=== PATIENT | female | born 1995 | race Two or more races ===

== ENCOUNTER 2016-12-22 08:29 | Emergency (ER) | payer MEDICAID ==
[~2016-12-22] VITALS: Ht 149.9 cm; Wt 39.0 kg
[2016-12-22] MEDS ORDERED: OYSTER SHELL C500 MG PO (08:56)
[2016-12-22] MEDS ORDERED: FOLIC ACID1 MG ORAL (08:56)
[2016-12-22] MEDS ORDERED: PRENATAL VITAM1 EACH PO (08:56)
[2016-12-22] MEDS ORDERED: NITROFURANTOIN100 M2 ORAL (08:56)
--- NOTE | 2016-12-22 09:50 | Emergency Room Report ---
History of Present Illness General Chief Complaint: Complications Source: Patient Present Illness HPI 21-year-old female presents ED for evaluation. Patient states she's approximately 4 months . Notice cramping pain in her abdomen starting this morning. 10 out of 10, cramping, localized right side, nonradiating. Denies vaginal bleeding or discharge. Denies fevers or chills. Denies nausea or vomiting. No aggravating factors. Denies any other associated symptoms Allergies: Coded Allergies: No Known Allergies (Unverified , 12/22/16) Patient History Past Medical History: none Past Surgical History: none Pertinent Family History: none Social History: Denies: alcohol use, drug use, smoking Last Menstrual Period: 4 months Now: No : 1 Immunizations: UTD Reviewed Nursing Documentation: PMH: Agreed, PSxH: Agreed Nursing Documentation-PMH Past Medical History: No History, Except For Review of Systems All Other Systems: negative except mentioned in HPI Physical Exam Vital Signs Date Time Temp Pulse Resp B/P Pulse Ox O2 Delivery O2 Flow Rate FiO2 12/22/16 08:42 97.7 83 18 95/60 99 Room Air Sp02 EP Interpretation: reviewed, normal General Appearance: alert, GCS 15, non-toxic, mild distress Head: normocephalic Eyes: bilateral eye PERRL, bilateral eye normal inspection ENT: normal ENT inspection Neck: normal inspection Respiratory: chest non-tender, lungs clear, normal breath sounds, speaking full sentences Cardiovascular #1: regular rate, rhythm, no edema Gastrointestinal: normal bowel sounds, soft, non-distended, no guarding, no rebound, tenderness Rectal: deferred Genitourinary: no CVA tenderness Musculoskeletal: normal inspection Neurologic: alert, oriented x3, responsive, motor strength/tone normal, sensory intact, speech normal Psychiatric: normal inspection Skin: normal inspection Lymphatic: normal inspection Medical Decision Making Diagnostic Impression: Primary Impression: Threatened ER Course Hospital Course 21-year-old female presents to ED complaining of lower abdominal pain. 4 months Differential diagnoses include: gastrits, gastroenterits, ectopic , ovarian torsion/cyst, UTI Clinical course Patient placed on stretcher in ED. After initial history and physical I ordered labs, IV fluids and OB ultrasound. Labs-no leukocytosis, electrolytes okay, beta hCG greater than 30,000, UA unremarkable Pelvic ultrasound-IUP detected with heart rate reassurance given the patient. Recommend followup with [facility] Diagnosis - threatened Stable and discharged to home with Rx tylenol. Followup with PMD/[facility]. Return to ED if symptoms recur or worsen Labs Test 12/22/16 08:59 12/22/16 09:21 Urine Color Yellow Urine Appearance Slightly cloudy Urine pH 5 (4.5-8.0) Urine Specific [place] 1.025 (1.005-1.035) Urine Protein 1+ (NEGATIVE) Urine Glucose (UA) Negative (NEGATIVE) Urine Ketones Negative (NEGATIVE) Urine Occult Blood Negative (NEGATIVE) Urine Nitrite Negative (NEGATIVE) Urine Bilirubin Negative (NEGATIVE) Urine Urobilinogen Normal MG/DL (0.0-1.0) Urine Leukocyte Esterase 2+ (NEGATIVE) Urine RBC 0-2 /HPF (0 - 2) Urine WBC 2-4 /HPF (0 - 2) Urine Squamous Epithelial Cells Occasional /LPF Urine Bacteria None /HPF (NONE) Urine HCG, Qualitative Positive White Blood Count 9.6 K/UL (4.8-10.8) Red Blood Count 3.87 M/UL (4.20-5.40) Hemoglobin 11.7 G/DL (12.0-16.0) Hematocrit 34.9 % (37.0-47.0) Mean Corpuscular Volume 90 FL (80-99) Mean Corpuscular Hemoglobin 30.3 PG (27.0-31.0) Mean Corpuscular Hemoglobin Concent 33.6 G/DL (32.0-36.0) Red Cell Distribution Width 12.9 % (11.6-14.8) Platelet Count 230 K/UL (150-450) Mean Platelet Volume 6.6 FL (6.5-10.1) Neutrophils (%) (Auto) 69.2 % (45.0-75.0) Lymphocytes (%) (Auto) 23.0 % (20.0-45.0) Monocytes (%) (Auto) 5.8 % (1.0-10.0) Eosinophils (%) (Auto) 1.2 % (0.0-3.0) Basophils (%) (Auto) 0.8 % (0.0-2.0) Sodium Level 136 mEQ/L (135-145) Potassium Level 3.8 mEQ/L (3.4-4.9) Chloride Level 104 mEQ/L (98-107) Carbon Dioxide Level 21 mEQ/L (20-30) Anion Gap 11 (5-15) Blood Urea Nitrogen 8 mg/dL (7-23) Creatinine 0.5 mg/dL (0.5-0.9) Estimat Glomerular Filtration Rate > 60 mL/min (>60) Glucose Level 82 mg/dL (74-106) Calcium Level 8.8 mg/dL (8.6-10.2) Total Bilirubin < 0.2 mg/dL (0.0-1.2) Aspartate Amino Transf (AST/SGOT) 18 U/L (5-40) Alanine Aminotransferase (ALT/SGPT) 18 U/L (3-33) Alkaline Phosphatase 51 U/L (35-104) Total Protein 6.6 g/dL (6.6-8.7) Albumin 3.6 g/dL (3.5-5.2) Globulin 3.0 g/dL Albumin/Globulin Ratio 1.2 (1.0-2.7) Lipase 51 U/L (< 60) Human Chorionic Gonadotropin, Quant 65880 mIU/mL CT/MRI/US Diagnostic Results CT/MRI/US Diagnostic Results : Imaging Test Ordered: OB US Impression 16 week 6day intrauterine . with FHR Last Vital Signs Date Time Temp Pulse Resp B/P Pulse Ox O2 Delivery O2 Flow Rate FiO2 12/22/16 08:42 97.7 83 18 95/60 99 Room Air Status: improved Disposition: HOME, SELF-CARE Condition: Stable Scripts Acetaminophen* (TYLENOL EXTRA STRENGTH*) 500 Mg Tablet 500 MG ORAL Q8H Y for Prn Headache/Temp > 101, #30 TAB 0 Refills Prov: KENNETH ALVARADO M.D. 12/22/16 Referrals: NON PHYSICIAN (PCP) KENNETH ALVARADO M.D. Dec 22, 2016 09:50
[2016-12-22 09:53] LABS: ALANINE AMINOTRANSFERASE 18 U/L (3-33); ALBUMIN/GLOBULIN RATIO 1.2 (1.0-2.7); ANION GAP 11 (5-15); ASPARTATE AMINO TRANSFERASE 18 U/L (5-40); CALCIUM 8.8 mg/dL (8.6-10.2); CARBON DIOXIDE 21 mEQ/L (20-30); CHLORIDE 104 mEQ/L (98-107); CREATININE 0.5 mg/dL (0.5-0.9); GLOMERULAR FILTRATION RATE > 60 mL/min (>60); HEMOLYSIS 6; LIPASE 51 U/L (< 60); POTASSIUM 3.8 mEQ/L (3.4-4.9); SODIUM 136 mEQ/L (135-145); TOTAL PROTEIN 6.6 g/dL (6.6-8.7)
[2016-12-22 09:58] LABS: BASOPHILS % (AUTO) 0.8 % (0.0-2.0); EOSINOPHILS % (AUTO) 1.2 % (0.0-3.0); MEAN CORPUSCULAR HEMOGLOBIN 30.3 PG (27.0-31.0); MEAN CORPUSCULAR HGB CONC 33.6 G/DL (32.0-36.0); MEAN CORPUSCULAR VOLUME 90 FL (80-99); MEAN PLATELET VOLUME 6.6 FL (6.5-10.1); MONOCYTES % (AUTO) 5.8 % (1.0-10.0); NEUTROPHILS % (AUTO) 69.2 % (45.0-75.0); PLATELET COUNT 230 K/UL (150-450); RED BLOOD COUNT 3.87 M/UL (4.20-5.40); RED CELL DISTRIBUTION WIDTH 12.9 % (11.6-14.8); WHITE BLOOD COUNT 9.6 K/UL (4.8-10.8)
[2016-12-22 09:59] LABS: APPEARANCE,URINE SLIGHTLY CLOUDY; KETONES,URINE NEGATIVE (NEGATIVE); LEUKOCYTE ESTERASE ,URINE 2+ (NEGATIVE); NITRITE,URINE NEGATIVE (NEGATIVE); PH,URINE 5 (4.5-8.0); PROTEIN,URINE 1+ (NEGATIVE); UROBILINOGEN,URINE NORMAL MG/DL (0.0-1.0)
[2016-12-22 10:07] LABS: RBC,URINE 0-2 /HPF (0 - 2); SQUAMOUS EPITHELIAL CELL,UR OCCASIONAL /LPF (NONE/OCC)
--- NOTE | 2016-12-22 10:43 | Diagnostic Imaging Report ---
Indication: ABD PAIN pain, patient Technique: Transabdominal grayscale and duplex images Comparison: None Findings: There is a single live intrauterine . Posterior fundal placenta clears the internal cervical os. Endocervical canal measures 3.5 cm in length. Positive heart activity, heart rate 141 beats for minute. Normal amniotic fluid, amniotic fluid index 10.7 cm. Some debris is seen within the amniotic fluid. measurements as follows: Biparietal diameter 35 mm, 16 weeks 6 days; head circumference 132 mm, 16 weeks 6 days; abdominal circumference 110 mm, 16 weeks 6 days; femur length 22 mm, 16 weeks 5 days. Is a gestational age by average ultrasound measurements is 16 weeks 6 days. Estimated date of delivery 06/02/2017. Estimated gestational age by dates is 17 weeks 3 days No gross anomalies demonstrated. Normal spine, stomach, kidneys, four-chamber heart, three-vessel cord, cord insertion, cerebral atria and ventricles, urinary bladder Impression: 16 week 6 day single intrauterine , viability also measurements. No unusual features
[2016-12-22] MEDS ORDERED: TYLENOL EXTRA500 MG ORAL (11:03)
[2016-12-22 11:22] VITALS: BP 95/60
== END 2016-12-22 11:27 | disposition home or self-care (01) ==
LOC: EMR 08:56
DX: O20.0 Threatened abortion (principal); Z3A.16 16 weeks gestation of pregnancy
CPT/HCPCS: 36415; 76805; 80053; 81003; 81025; 83690; 84702; 85025; 96374

== ENCOUNTER 2017-05-31 22:20 | Emergency (ER) | payer MEDICAID ==
[~2017-05-31] VITALS: Ht 162.6 cm; Wt 50.3 kg
[~2017-05-31 22:20] MED LIST: FOLIC ACID1 MG ORAL; NITROFURANTOIN100 M2 ORAL; OYSTER SHELL C500 MG PO; PRENATAL VITAM1 EACH PO; TYLENOL EXTRA500 MG ORAL
[2017-05-31 22:45] VITALS: BP 138/79
[2017-05-31 22:50] VITALS: BP 138/79
--- NOTE | 2017-06-01 04:36 | Emergency Room Report ---
History of Present Illness General Chief Complaint: Active Labor Source: Patient Present Illness HPI 21-year-old female presents to ED complaining of abdominal pain. Family at bedside states that patient is 40 weeks . Was due on 05/29. Patient been having cramping abdominal pain for the last day. Was seen at another hospital and they "checked her" states she was not ready for delivery. Notes cramping abdominal pain, 6/10, nonradiating. Denies any vaginal bleeding. Denies any discharge. States her water did not break. States this is her first . No other aggravating relieving factors. Denies any other associated symptoms Allergies: Coded Allergies: No Known Allergies (Unverified , 12/22/16) Patient History Past Medical History: none Past Surgical History: none Pertinent Family History: none Social History: Denies: smoking, alcohol use, drug use Last Menstrual Period: unk Now: Yes - 40 weeks Immunizations: UTD Reviewed Nursing Documentation: PMH: Agreed, PSxH: Agreed Nursing Documentation-PMH Past Medical History: No Stated History Review of Systems All Other Systems: negative except mentioned in HPI Physical Exam Vital Signs Date Time Temp Pulse Resp B/P (MAP) Pulse Ox O2 Delivery O2 Flow Rate FiO2 05/31/17 22:32 97.9 89 18 144/79 98 Room Air Sp02 EP Interpretation: reviewed, normal General Appearance: alert, GCS 15, non-toxic, mild distress Head: normocephalic Eyes: bilateral eye normal inspection, bilateral eye PERRL ENT: normal ENT inspection Neck: normal inspection Respiratory: chest non-tender, lungs clear, normal breath sounds, speaking full sentences Cardiovascular #1: regular rate, rhythm, no edema Gastrointestinal: normal bowel sounds, other - gravid uterus Rectal: deferred Genitourinary: no CVA tenderness, ext genitalia/vag normal, other - cervix not dilated. no of fetus. hand marker present Musculoskeletal: normal inspection Neurologic: alert, oriented x3, responsive, motor strength/tone normal, sensory intact, speech normal Psychiatric: normal inspection Skin: normal inspection Lymphatic: normal inspection Medical Decision Making Diagnostic Impression: Primary Impression: Abdominal pain Qualified Codes: R10.9 - Unspecified abdominal pain ER Course Hospital Course 21-year-old female presents ED complaining of cramping abdominal pain. 40 weeks Differential diagnoses include: gastrits, gastroenterits, ectopic , ovarian torsion/cyst, UTI Clinical course Patient placed on stretcher in ED. after initial history physical exam reveals a female in mild distress. Gravid uterus. Marine Oiler present. Upon exam patient cervix is not dilated, no . Water did not break. I explained to the family that patient does need monitoring in labor and delivery unit. Patient will require transfer to [facility] Family states they would prefer to take patient themselves to [facility] as it would be faster for them patient is not currently in danger of impending immediate delivery given no cervical dilatation Understands the risks of leaving. Patient has competency to make her own decisions. Signed AMA form. Diagnosis - abdominal pain patient left AMA Last Vital Signs Date Time Temp Pulse Resp B/P (MAP) Pulse Ox O2 Delivery O2 Flow Rate FiO2 05/31/17 22:32 97.9 89 18 144/79 98 Room Air Status: unchanged Disposition: AGAINST MEDICAL ADVICE Condition: Stable KENNETH ALVARADO M.D. Jun 01, 2017 04:36
== END 2017-05-31 22:50 | disposition left against medical advice (07) ==
LOC: EMR 22:41
DX: O26.893 Other specified pregnancy related conditions, third trimester (principal); Z3A.40 40 weeks gestation of pregnancy
CPT/HCPCS: 99283